=== PATIENT | male | born 1970 | race Two or more races ===

== ENCOUNTER 2017-08-01 15:52 | Emergency (ER) | payer MEDICAID ==
[~2017-08-01] VITALS: Ht 172.7 cm; Wt 76.0 kg
[2017-08-01 16:14] VITALS: BP 120/84
== END 2017-08-01 18:00 | disposition left against medical advice (07) ==
LOC: ER 16:09
DX: M54.5 Low back pain (principal); M79.606 Pain in leg, unspecified; Z53.21 Procedure and treatment not carried out due to patient leaving prior to being seen by health care provider

== ENCOUNTER 2018-12-06 15:16 | Emergency (ER) | payer MEDICAID ==
[~2018-12-06] VITALS: Ht 167.6 cm; Wt 64.0 kg
[~2018-12-06 15:16] MED LIST: LANTUSUD SUBCUT; TRAM50TA3 PO
[2018-12-06] MEDS ORDERED: SODIUM CHLORIDE 0.9% 1,000 ML IV ONE (16:50)
[2018-12-06 17:02] LABS: BASOPHILS % 0.6 % (0.0-2.0); EOSINOPHILS % 0.8 % (0.0-5.0); HEMATOCRIT. 42.3 % (42.0-52.0); HEMOGLOBIN. 14.8 g/dL (14.0-18.0); LYMPHOCYTES % 30.7 % (20.0-50.0); MEAN CORPUSCULAR HEMOGLOBIN 29.6 pg (28.0-32.0); MEAN CORPUSCULAR VOLUME 84.6 fL (80.0-94.0); MONOCYTES % 7.9 % (2.0-8.0); PLATELET 304 x1000/uL (130-400); RED CELL DISTRIBUTION WIDTH 13.3 % (11.6-14.6)
[2018-12-06 17:04] LABS: CHLORIDE 99 mEq/L (98-107)
[2018-12-06 17:12] LABS: BETA HYDROXYBUTYRATE 0.2 mMol/L (0.0-0.3)
[2018-12-06] MEDS ORDERED: FENTANYL CITRATE/PF 50MCG/ML 2ML VIAL IV ONE (17:30)
[2018-12-06 17:34] LABS: BG BASE EXCESS 1.6 mmol/L (-2.0-2.0); BG DEOXYHEMOGLOBIN 2.9 % (0.0-5.0); BG FRACTION INSPIRED OXYGEN 21; BG HCO3 ACT 26.6 mmol/L (22.0-26.0); BG METHEMOGLOBIN 0.2 % (0.0-1.5); BG OXYGEN SATURATION 97.1 % (92.0-98.5); BG OXYHEMOGLOBIN 95.9 % (94.0-97.0); BG PH 7.409 (7.350-7.450); BG PO2 87.1 mmHg (75.0-100.0); BG SAMPLE SITE LEFT BRACHIAL; BG TOTAL HEMOGLOBIN 14.9 g/dL (12.0-18.0); BG VENT MODE ROOM AIR
[2018-12-06 19:15] VITALS: BP 103/64
[2018-12-06 19:49] LABS: CLARITY URINE CLEAR (CLEAR); COLOR URINE YELLOW (YELLOW); KETONES URINE TRACE (NEGATIVE); LEUKOCYTE ESTERASE URINE NEGATIVE (NEGATIVE); NITRITE URINE NEGATIVE (NEGATIVE); OCCULT BLOOD URINE NEGATIVE (NEGATIVE); PROTEIN URINE NEGATIVE (NEGATIVE); SPECIFIC GRAVITY URINE 1.042 (1.005-1.030); UROBILINOGEN URINE 0.2 E.U./dL (0.2-1.0)
== END 2018-12-06 19:37 | disposition home or self-care (01) ==
LOC: ER 17:01
DX: E10.8 Type 1 diabetes mellitus with unspecified complications (principal); Z79.84 Long term (current) use of oral hypoglycemic drugs
CPT/HCPCS: 36415; 36600; 80053; 81003; 82010; 82375; 82805; 82962; 83690; 85025; 93005; 96374; 99284; J3010; J7030

== ENCOUNTER 2018-12-15 13:28 | Emergency (ER) | payer MEDICAID ==
[~2018-12-15] VITALS: Ht 167.6 cm; Wt 65.0 kg
[2018-12-15] MEDS ORDERED: DEXAMETHASONE 4MG TABLET PO ONE (15:30)
[2018-12-15 15:31] LABS: CHLORIDE 100 mEq/L (98-107)
[2018-12-15 15:32] LABS: BASOPHILS % 0.1 % (0.0-2.0); HEMATOCRIT. 41.6 % (42.0-52.0); HEMOGLOBIN. 14.3 g/dL (14.0-18.0); LYMPHOCYTES % 20.7 % (20.0-50.0); MEAN CORPUSCULAR HEMOGLOBIN 29.5 pg (28.0-32.0); MEAN CORPUSCULAR VOLUME 85.5 fL (80.0-94.0); MEAN PLATELET VOLUME 8.6 fl (7.4-10.4); MONOCYTES % 5.4 % (2.0-8.0); NEUTROPHILS % 72.8 % (40.0-76.0); PLATELET 216 x1000/uL (130-400); RED BLOOD CELL COUNT 4.86 mill/uL (4.7-6.1)
[2018-12-15 15:35] LABS: D-DIMER < 0.19 mg/L FEU (<0.50); PROTHROMBIN TIME 9.9 sec (9.6-11.0)
[2018-12-15] MEDS ORDERED: HYDROCODONE/ACETAMINOPHEN 5/325MG TABLET PO ONE (16:15)
[2018-12-15 16:27] LABS: CLARITY URINE CLEAR (CLEAR); COLOR URINE YELLOW (YELLOW); KETONES URINE 3+ (NEGATIVE); LEUKOCYTE ESTERASE URINE 1+ (NEGATIVE); NITRITE URINE NEGATIVE (NEGATIVE); OCCULT BLOOD URINE 1+ (NEGATIVE); PH URINE 5.5 (4.5-8.0); PROTEIN URINE NEGATIVE (NEGATIVE); SPECIFIC GRAVITY URINE 1.042 (1.005-1.030); UROBILINOGEN URINE 0.2 E.U./dL (0.2-1.0)
[2018-12-15] MEDS ORDERED: MORPHINE SULFATE 4 MG/ML CPJ (NOT FOR IM USE) IV ONE (17:30)
[2018-12-15 18:55] VITALS: BP 145/83
== END 2018-12-15 18:58 | disposition home or self-care (01) ==
LOC: ER 14:08
DX: M79.89 Other specified soft tissue disorders (principal); M54.30 Sciatica, unspecified side; E11.42 Type 2 diabetes mellitus with diabetic polyneuropathy; I10 Essential (primary) hypertension
CPT/HCPCS: 36415; 80053; 81003; 82962; 83690; 83880; 84484; 85025; 85379; 85610; 93970; 96374; 99284; J2270; J8540

== ENCOUNTER 2022-11-23 09:17 | Inpatient (IN) | payer OTHER, MEDICAID ==
[~2022-11-23] VITALS: Ht 172.7 cm; Wt 58.1 kg
[2022-11-23 09:51] LABS: BASOPHILS % 0.2 % (0.0-2.0); EOSINOPHILS % 1.6 % (0.0-5.0); HEMATOCRIT. 38.2 % (42.0-52.0); HEMOGLOBIN. 12.8 g/dL (14.0-18.0); LYMPHOCYTES % 35.1 % (20.0-50.0); MEAN CORPUSCULAR VOLUME 86.4 fL (80.0-94.0); MEAN PLATELET VOLUME 8.4 fl (7.4-10.4); MONOCYTES % 7.3 % (2.0-8.0); NEUTROPHILS % 55.8 % (40.0-76.0); PLATELET 257 x1000/uL (130-400); RED BLOOD CELL COUNT 4.42 mill/uL (4.7-6.1); RED CELL DISTRIBUTION WIDTH 13.9 % (11.6-14.6)
[2022-11-23] MEDS ORDERED: IOHEXOL-350 100 ML BOTTLE ONE (09:55)
[2022-11-23 09:57] LABS: CHLORIDE 101 mEq/L (98-107)
[2022-11-23 10:08] LABS: ETHANOL BLOOD < 10 mg/dL
[2022-11-23 18:26] LABS: CLARITY URINE TURBID (CLEAR); COLOR URINE YELLOW (YELLOW); KETONES URINE NEGATIVE (NEGATIVE); LEUKOCYTE ESTERASE URINE 2+ (NEGATIVE); NITRITE URINE NEGATIVE (NEGATIVE); OCCULT BLOOD URINE 1+ (NEGATIVE); PH URINE 5.5 (4.5-8.0); PROTEIN URINE TRACE (NEGATIVE); SPECIFIC GRAVITY URINE 1.072 (1.005-1.030); UROBILINOGEN URINE 0.2 E.U./dL (0.2-1.0)
[2022-11-23 18:47] LABS: *AMPHETAMINES SCREEN URINE NEGATIVE (NEGATIVE); *BARBITURATES SCREEN URINE NEGATIVE (NEGATIVE); *BENZODIAZEPINES SCREEN URINE NEGATIVE (NEGATIVE); *COCAINE SCREEN URINE NEGATIVE (NEGATIVE); CANNABINOID URINE SCREEN NEGATIVE (NEGATIVE); METHADONE URINE SCREEN NEGATIVE (NEGATIVE); OPIATES URINE SCREEN NEGATIVE (NEGATIVE); PHENCYCLIDINE URINE SCREEN NEGATIVE (NEGATIVE)
[2022-11-23] MEDS ORDERED: ACETAMINOPHEN 325MG TABLET PO PRN (21:45)
[2022-11-23] MEDS ORDERED: IPRATROPIUM/ALBUTEROL 0.5-3(2.5)MG/3ML NEB HHN PRN (21:45)
[2022-11-23] MEDS ORDERED: ONDANSETRON HCL 4MG/2ML INJ IV PRN (21:45)
[2022-11-23 22:25] VITALS: BP 99/68
[2022-11-23] MEDS ORDERED: ALBUTEROL (0.083%) 2.5MG/3ML NEB HHN PRN (23:00)
[2022-11-23] MEDS ORDERED: IPRATROPIUM BROMIDE (0.02%) 0.5MG/2.5ML NEB HHN PRN (23:00)
[2022-11-23 23:07] VITALS: BP 99/68
[2022-11-24] VITALS: BP 113/75
[2022-11-24 01:16] LABS: CREATINE KINASE 98 IU/L (39-308); CREATINE KINASE MB FRACTION 6.2 ng/mL (0.5-3.6); HDL CHOLESTEROL 38 mg/dL (40-59); LDL CHOLESTEROL 75 mg/dL (5-100)
[2022-11-24 04:00] VITALS: BP 95/64
[2022-11-24 07:55] LABS: CREATINE KINASE MB FRACTION 5.7 ng/mL (0.5-3.6)
[2022-11-24 08:00] VITALS: BP 123/79
[2022-11-24] MEDS ORDERED: DEXTROSE 50% WATER 50ML SYRINGE IV PRN ×2 (08:00)
[2022-11-24] MEDS: INSULIN LISPRO 100 UNITS/ML SUBCUT SCH ×4 (08:50→22:07)
[2022-11-24] MEDS ORDERED: ENOXAPARIN 40MG/0.4ML SYR SUBCUT SCH (09:00)
[2022-11-24] MEDS ORDERED: INSULIN LISPRO 100 UNITS/ML SUBCUT ONE (09:30)
[2022-11-24 12:00] VITALS: BP 70/43
[2022-11-24] MEDS: BLOOD SUGAR DIAGNOSTIC STRIP TEST SCH ×3 (12:20→21:00)
[2022-11-24] MEDS: CEFTRIAXONE 1GM PREMIX 50 ML IV SCH (13:15)
[2022-11-24] MEDS: GABAPENTIN 100MG CAPSULE PO SCH ×2 (14:00→22:00)
[2022-11-24 16:00] VITALS: BP 70/40
[2022-11-24] MEDS ORDERED: ONDANSETRON HCL 4MG/2ML INJ IV PRN (16:00)
[2022-11-24] MEDS: SODIUM CHLORIDE 0.45% 1,000 ML IV SCH (16:43)
[2022-11-24 20:00] VITALS: BP 93/54
[2022-11-24] MEDS ORDERED: INFLUENZA VACCINE 05/PF 0.5 ML SYRINGE IM ONE (21:00)
[2022-11-24] MEDS ORDERED: PNEUMOCOCCAL 23-VAL P-SAC VAC 0.5 ML IM ONE (21:00)
[2022-11-24] MEDS: INSULIN GLARGINE 100 UNITS/ML SUBCUT SCH (22:07)
[2022-11-25] VITALS: BP 98/59
[2022-11-25] MEDS: SODIUM CHLORIDE 0.45% 1,000 ML IV SCH ×3 (02:16→21:39)
[2022-11-25 04:00] VITALS: BP 87/57
[2022-11-25] MEDS: GABAPENTIN 100MG CAPSULE PO SCH ×4 (05:56→21:41)
[2022-11-25] MEDS: BLOOD SUGAR DIAGNOSTIC STRIP TEST SCH ×4 (06:53→21:39)
[2022-11-25 08:00] VITALS: BP 98/63
[2022-11-25] MEDS: INSULIN LISPRO 100 UNITS/ML SUBCUT SCH ×4 (08:40→20:17)
[2022-11-25] MEDS ORDERED: ENOXAPARIN 30MG/0.3ML SYR SUBCUT SCH (09:00)
[2022-11-25 12:00] VITALS: BP 90/56
[2022-11-25] MEDS ORDERED: LEVO-65 MT (12:34)
[2022-11-25] MEDS ORDERED: MIDO5TAB4 MT (12:34)
[2022-11-25] MEDS: CEFTRIAXONE 1GM PREMIX 50 ML IV SCH (13:15)
[2022-11-25] MEDS: MIDODRINE HCL 5MG TABLET PO SCH ×2 (14:19→17:00)
[2022-11-25 16:00] VITALS: BP 98/62
[2022-11-25 20:00] VITALS: BP 113/54
[2022-11-25] MEDS: INSULIN GLARGINE 100 UNITS/ML SUBCUT SCH (20:19)
[2022-11-25] MEDS ORDERED: INSULIN LISPRO 100 UNITS/ML SUBCUT NR (22:45)
[2022-11-26] VITALS: BP 103/64
[2022-11-26 04:00] VITALS: BP 83/54
[2022-11-26] MEDS: GABAPENTIN 100MG CAPSULE PO SCH ×5 (06:00→22:47)
[2022-11-26] MEDS: BLOOD SUGAR DIAGNOSTIC STRIP TEST SCH ×4 (06:55→21:00)
[2022-11-26 08:00] VITALS: BP 88/56
[2022-11-26] MEDS: SODIUM CHLORIDE 0.45% 1,000 ML IV SCH ×2 (08:00→18:37)
[2022-11-26] MEDS: INSULIN LISPRO 100 UNITS/ML SUBCUT SCH ×4 (08:10→22:45)
[2022-11-26] MEDS: ENOXAPARIN 40MG/0.4ML SYR SUBCUT SCH (09:00)
[2022-11-26 10:53] LABS: BASOPHILS % 0.3 % (0.0-2.0); EOSINOPHILS % 2.4 % (0.0-5.0); HEMATOCRIT. 33.4 % (42.0-52.0); HEMOGLOBIN. 11.4 g/dL (14.0-18.0); LYMPHOCYTES % 30.3 % (20.0-50.0); MEAN CORPUSCULAR HEMOGLOBIN 29.7 pg (28.0-32.0); MEAN PLATELET VOLUME 8.8 fl (7.4-10.4); MONOCYTES % 7.6 % (2.0-8.0); NEUTROPHILS % 59.4 % (40.0-76.0); PLATELET 201 x1000/uL (130-400); RED BLOOD CELL COUNT 3.84 mill/uL (4.7-6.1); RED CELL DISTRIBUTION WIDTH 13.7 % (11.6-14.6)
[2022-11-26 11:23] LABS: CHLORIDE 107 mEq/L (98-107)
[2022-11-26 12:00] VITALS: BP 86/48
[2022-11-26] MEDS: MIDODRINE HCL 5MG TABLET PO SCH ×2 (13:15→16:47)
[2022-11-26 16:00] VITALS: BP 98/53
[2022-11-26] MEDS: CEFTRIAXONE 1GM PREMIX 50 ML IV SCH (16:47)
[2022-11-26] MEDS ORDERED: IPRATROPIUM/ALBUTEROL 0.5-3(2.5)MG/3ML NEB HHN PRN (17:00)
[2022-11-26 20:00] VITALS: BP 120/75
[2022-11-26] MEDS: INSULIN GLARGINE 100 UNITS/ML SUBCUT SCH (22:46)
[2022-11-27] VITALS: BP 124/78
[2022-11-27 04:00] VITALS: BP 107/71
[2022-11-27] MEDS: SODIUM CHLORIDE 0.45% 1,000 ML IV SCH ×3 (05:53→23:55)
[2022-11-27] MEDS: BLOOD SUGAR DIAGNOSTIC STRIP TEST SCH ×4 (06:08→20:52)
[2022-11-27] MEDS: INSULIN LISPRO 100 UNITS/ML SUBCUT SCH ×4 (07:44→20:58)
[2022-11-27 08:00] VITALS: BP 82/55
[2022-11-27] MEDS: MIDODRINE HCL 5MG TABLET PO SCH ×3 (08:51→16:47)
[2022-11-27] MEDS: ENOXAPARIN 40MG/0.4ML SYR SUBCUT SCH (08:52)
[2022-11-27 12:00] VITALS: BP 87/54
[2022-11-27] MEDS: FLUDROCORTISONE ACETATE 0.1MG TABLET PO SCH (12:58)
[2022-11-27] MEDS: CEFTRIAXONE 1GM PREMIX 50 ML IV SCH (13:17)
[2022-11-27] MEDS: GABAPENTIN 100MG CAPSULE PO SCH ×2 (14:00→20:52)
[2022-11-27 16:44] VITALS: BP 89/55
[2022-11-27 20:00] VITALS: BP 97/60
[2022-11-27] MEDS: INSULIN GLARGINE 100 UNITS/ML SUBCUT SCH ×2 (20:59→22:00)
[2022-11-27] MEDS ORDERED: LOPERAMIDE HCL 2MG CAPSULE PO PRN (21:30)
[2022-11-28] VITALS: BP 95/72
[2022-11-28 04:00] VITALS: BP_SYST 107; BP_SYST 145; BP_DIAS 69
[2022-11-28] MEDS: GABAPENTIN 100MG CAPSULE PO SCH ×3 (05:42→21:27)
[2022-11-28] MEDS: BLOOD SUGAR DIAGNOSTIC STRIP TEST SCH ×4 (06:08→21:26)
[2022-11-28 08:00] VITALS: BP 77/45
[2022-11-28] MEDS: ENOXAPARIN 40MG/0.4ML SYR SUBCUT SCH (08:25)
[2022-11-28] MEDS: FLUDROCORTISONE ACETATE 0.1MG TABLET PO SCH (08:25)
[2022-11-28] MEDS: MIDODRINE HCL 5MG TABLET PO SCH ×3 (08:25→17:57)
[2022-11-28] MEDS: INSULIN LISPRO 100 UNITS/ML SUBCUT SCH ×4 (08:35→21:28)
[2022-11-28] MEDS: SODIUM CHLORIDE 0.45% 1,000 ML IV SCH ×2 (08:36→21:25)
[2022-11-28] MEDS: INSULIN GLARGINE 100 UNITS/ML SUBCUT SCH ×2 (10:48→21:28)
[2022-11-28 12:00] VITALS: BP 95/51
[2022-11-28] MEDS: CEFTRIAXONE 1GM PREMIX 50 ML IV SCH (13:10)
[2022-11-28 16:00] VITALS: BP 106/71
[2022-11-28 20:00] VITALS: BP 121/76
[2022-11-29 00:09] VITALS: BP 122/75
[2022-11-29 03:46] VITALS: BP 115/73
[2022-11-29] MEDS: GABAPENTIN 100MG CAPSULE PO SCH ×2 (05:33→14:00)
[2022-11-29] MEDS: SODIUM CHLORIDE 0.45% 1,000 ML IV SCH (05:33)
[2022-11-29 06:17] LABS: BASOPHILS % 0.4 % (0.0-2.0); EOSINOPHILS % 2.2 % (0.0-5.0); HEMATOCRIT. 30.3 % (42.0-52.0); HEMOGLOBIN. 10.4 g/dL (14.0-18.0); LYMPHOCYTES % 37.1 % (20.0-50.0); MEAN CORPUSCULAR HEMOGLOBIN 29.7 pg (28.0-32.0); MEAN CORPUSCULAR VOLUME 86.1 fL (80.0-94.0); MEAN PLATELET VOLUME 8.4 fl (7.4-10.4); NEUTROPHILS % 49.3 % (40.0-76.0); PLATELET 199 x1000/uL (130-400); RED BLOOD CELL COUNT 3.52 mill/uL (4.7-6.1); RED CELL DISTRIBUTION WIDTH 14.1 % (11.6-14.6)
[2022-11-29] MEDS: BLOOD SUGAR DIAGNOSTIC STRIP TEST SCH ×2 (06:45→12:40)
[2022-11-29 08:00] VITALS: BP 98/56
[2022-11-29] MEDS: FLUDROCORTISONE ACETATE 0.1MG TABLET PO SCH (08:16)
[2022-11-29] MEDS: ENOXAPARIN 40MG/0.4ML SYR SUBCUT SCH (08:16)
[2022-11-29] MEDS: INSULIN LISPRO 100 UNITS/ML SUBCUT SCH ×2 (08:16→13:39)
[2022-11-29] MEDS: MIDODRINE HCL 5MG TABLET PO SCH ×2 (08:17→13:34)
[2022-11-29 08:37] LABS: CHLORIDE 112 mEq/L (98-107)
[2022-11-29 12:00] VITALS: BP 99/62
[2022-11-29] MEDS: CEFTRIAXONE 1GM PREMIX 50 ML IV SCH (13:36)
[2022-11-29] MEDS: INSULIN GLARGINE 100 UNITS/ML SUBCUT SCH (13:39)
[2022-11-29 15:04] VITALS: BP 98/56
== END 2022-11-29 17:22 | disposition home health service (06) | DRG 74 ==
LOC: EDBEDREQ 10:34 → EDBEDREQTM 10:34 → EDBEDREQSVC 10:34 → ER 10:50 → 6EST 11:35 → EDBEDREQ 12:18 → EDBEDREQTM 12:18 → ENRESERV 19:51 → 7WST 11-24 23:34
PROVIDERS: ADMIT Internal Medicine; ATTEND Internal Medicine
DX: G56.32 Lesion of radial nerve, left upper limb (principal); N39.0 Urinary tract infection, site not specified; G90.8 Other disorders of autonomic nervous system; M21.332 Wrist drop, left wrist; E11.42 Type 2 diabetes mellitus with diabetic polyneuropathy; E11.65 Type 2 diabetes mellitus with hyperglycemia; I10 Essential (primary) hypertension; Z20.822 Contact with and (suspected) exposure to COVID-19; Z86.73 Personal history of transient ischemic attack (TIA), and cerebral infarction without residual deficits
CPT/HCPCS: 36415; 70496; 70498; 70551; 71045; 72141; 74176; 80053; 80061; 80305; 80320; 81003; 82533; 82550; 82553; 82962; 83036; 84145; 84484; 85025; 85651; 87426; 87493; 90686; 90732; 93005; 97162; 99291; J0696; J1650; J1815; J2405; Q9967; G0480